=== PATIENT | female | born 1990 | race Caucasian/White ===

== ENCOUNTER 2018-12-23 16:55 | Emergency (ER) | payer SELFPAY ==
--- NOTE | 2018-12-23 17:20 | UC ---
General HPI - HPI Summary HPI Summary: pt tripped and fell 9 days ago injuring her L hand. she is c/o pain along ulnar side 5th finger will on occasion go numb. - History of Current Complaint Stated Complaint: LEFT HAND INJURY Time Seen by Provider: 12/23/18 17:14 Hx Obtained From: Patient Onset/Duration: Sudden Onset Timing: Constant Associated Signs & Symptoms: Negative: Edema, Fever, Weakness - Allergy/Home Medications Allergies/Adverse Reactions: Allergies Allergy/AdvReac Type Severity Reaction Status Date / Time morphine Allergy Unknown Vomiting Verified 12/23/18 17:24 Home Medications: Home Medications Etodolac 500 mg PO PRN 12/23/18 [History] Levonorgestrel (Iud) [Liletta IUD] 18.6 mcg IU 12/23/18 [History] PMH/Surg Hx/FS Hx/Imm Hx Previously Healthy: Yes - Family History Known Family History: Positive: Non-Contributory - Social History Lives: With Family Review of Systems All Other Systems Reviewed And Are Negative: No Constitutional: Negative: Fever Skin: Negative: Rash Musculoskeletal: Negative: Decreased ROM, Edema Neurological: Positive: Numbness - occasional to L 5th finger. Physical Exam Triage Information Reviewed: Yes Appearance: Well-Appearing Vital Signs Reviewed: Yes Cardiovascular: Positive: RRR Musculoskeletal: Positive: Other: - L hand: no gross deformity, swelling or discoloration. tender over the distal 5th metacarpal/mcp joint areas. rest of hand is non tender. hand has full s/v/m function. wrist, elbow and shoulder are non tender. Neurological: Positive: Alert Psychological: Positive: Age Appropriate Behavior Skin Exam: Normal Diagnostics - Radiology No standard instances Radiology Interpretation Completed By: Radiologist - IMPRESSION: There is no radiographically apparent fracture or dislocation of the left hand. If the patient's symptoms persist, follow-up imaging is recommended. Course/Dx - Diagnoses Provider Diagnosis: Contusion of left hand Discharge ED - Sign-Out/Discharge Documenting (check all that apply): Patient Departure All imaging exams completed and their final reports reviewed: Yes - Discharge Plan Condition: Stable Disposition: HOME Patient Education Materials: Contusion in Adults (ED), Neurapraxia (ED) Referrals: Lyudmila Cain MD [Medical Doctor] - Additional Instructions: FOLLOW UP IF NOT BETTER IN 5 DAYS OR SOONER IF WORSE. TAKE OVER THE COUNTER MOTRIN 600MG 3X'S DAILY FOR 3 DAYS THEN NEEDED. YOU MAY MAUREEN TAPE THE 4TH AND 5TH FINGERS FOR COMFORT. - Billing Disposition and Condition Condition: STABLE Disposition: Home
[2018-12-23 17:36] VITALS: BP 111/74
== END 2018-12-23 17:51 | disposition home or self-care (01) ==
LOC: UCCORT 16:55
DX: S60.222A Contusion of left hand, initial encounter (principal); W01.0XXA Fall on same level from slipping, tripping and stumbling without subsequent striking against object, initial encounter; Y93.9 Activity, unspecified; Z88.5 Allergy status to narcotic agent
CPT/HCPCS: 99211; G0463